=== PATIENT | female | born 1955 | race Caucasian/White ===

== ENCOUNTER → 2018-08-12 12:57 | Outpatient (CLI) | payer MEDICAID | END | disposition home or self-care (01) | LOC: D.CT 12:57 | DX: R51 Headache (principal) ==

== ENCOUNTER 2018-10-01 07:26 | Emergency (ER) | payer MEDICAID ==
[~2018-10-01] VITALS: Ht 154.9 cm; Wt 60.5 kg
[2018-10-01 07:29] VITALS: Ht 154.9 cm; Wt 60.5 kg
[2018-10-01] MEDS ORDERED: BAYER CHEWABLE81 MG PO (07:30)
[2018-10-01] MEDS ORDERED: GLUCOPHAGE1000 MG PO (07:30)
[2018-10-01] MEDS ORDERED: EYE VITAMIN (07:31)
[2018-10-01] MEDS ORDERED: [UNRECOGNIZED DRUG - OTHER] (07:31)
[2018-10-01] MEDS ORDERED: JARDIANCE25 MG PO (07:31)
[2018-10-01] MEDS ORDERED: MULTI-DAY VITAM1 TAB PO (07:32)
[2018-10-01] MEDS ORDERED: CALCIUM 600 +1 EAC3 PO (07:32)
[2018-10-01] MEDS ORDERED: LEXAPRO20 MG PO (07:32)
[2018-10-01] MEDS ORDERED: TRAZODONE HCL150 MG PO (07:32)
[2018-10-01] MEDS ORDERED: ISOSORBIDE MONO30 M1 PO (07:33)
[2018-10-01] MEDS ORDERED: TESSALON PERLE100 MG PO (08:12)
[2018-10-01] MEDS ORDERED: FLUTICASONE PRO16 GM NASAL (08:12)
[2018-10-01] MEDS ORDERED: AUGMENTIN 875-11 TAB PO (08:12)
[2018-10-01 08:21] VITALS: BP 132/74
== END 2018-10-01 08:22 | disposition home or self-care (01) ==
LOC: D.ER 07:26
DX: J01.90 Acute sinusitis, unspecified (principal); F17.210 Nicotine dependence, cigarettes, uncomplicated; E11.9 Type 2 diabetes mellitus without complications; I10 Essential (primary) hypertension; K21.9 Gastro-esophageal reflux disease without esophagitis; M81.0 Age-related osteoporosis without current pathological fracture

== ENCOUNTER 2019-02-25 14:43 | Emergency (ER) | payer MEDICAID ==
[~2019-02-25] VITALS: Ht 154.9 cm; Wt 56.8 kg
[~2019-02-25 14:43] MED LIST: AUGMENTIN 875-11 TAB PO; BAYER CHEWABLE81 MG PO; CALCIUM 600 +1 EAC3 PO; EYE VITAMIN; FLUTICASONE PRO16 GM NASAL; GLUCOPHAGE1000 MG PO; ISOSORBIDE MONO30 M1 PO; JARDIANCE25 MG PO; LEXAPRO20 MG PO; MULTI-DAY VITAM1 TAB PO; TESSALON PERLE100 MG PO; TRAZODONE HCL150 MG PO; [UNRECOGNIZED DRUG - OTHER]
[2019-02-25 14:47] VITALS: Ht 154.9 cm; Wt 56.8 kg
[2019-02-25] MEDS ORDERED: COZAAR25 MG PO (14:53)
[2019-02-25] MEDS ORDERED: VOLTAREN100 GM TOPICAL (15:54)
[2019-02-25 16:47] VITALS: BP 123/60
== END 2019-02-25 16:43 | disposition home or self-care (01) ==
LOC: D.ER 14:43
DX: M17.12 Unilateral primary osteoarthritis, left knee (principal)